=== PATIENT | male | born 1955 | race Caucasian/White ===

== ENCOUNTER 2021-10-17 10:40 | Emergency (ER) | payer MEDICARE, SELFPAY ==
--- NOTE | ~2021-10-17 | XR_ITS ---
EXAMINATION: XR chest 1V portable INDICATION: STEMI TECHNIQUE: Portable AP chest at 1207 hours COMPARISON: None available FINDINGS: Cardiomegaly is noted. There is mild diffuse interstitial pattern. Minimal airspace opaciti es are present in the left lung base. No pleural effusion or pneumothorax. IMPRESSION: 1. Cardiomegaly. 2. Mild diffuse interstitial pattern, likely pulmonary edema. 3. Left basilar airspace opacity, consistent with atelectasis versus pneumonia. Reviewed, dictated and finalized at location A.
[2021-10-17 10:45] VITALS: BP 185/70; PULSE 80; RESP 16; TEMP 36.7; O2SAT 97
--- NOTE | 2021-10-17 10:45 | ECG_ITS ---
Measurements Intervals [place] Rate: 78 P: 16 PA: 120 QRS: -38 QRSD: 148 T: 32 QT: 378 QTc: 431 Interpretive Statements SINUS RHYTHM RIGHT BUNDLE BRANCH BLOCK NO PREVIOUS ECG AVAILABLE FOR COMPARISON Electronically Signed On 10-17-2021 12:06:30 CDT by Wu Landavedre M.D.
[2021-10-17 12:21] LABS: Basophils Percent Auto 0.3 % (0.2-1.2); Eosinophils Absolute Auto 0.2 K/mm3 (0-0.3); Eosinophils Percent Auto 3.2 % (0-4.4); Hematocrit 40.5 % (42.0-52.0); Hemoglobin 13.7 g/dL (14.0-18.0); Immature Granulocyte Absolute 0.04 K/mm3 (0.00-0.031); Immature Granulocyte Percent A 0.7 % (0-0.5); Lymphocytes Absolute Auto 1.53 K/mm3 (0.9-3.2); Lymphocytes Percent Auto 25.8 % (18.3-44.2); Mean Corpuscular HGB Conc 33.8 g/dl (32-36); Mean Corpuscular Hemoglobin 30.1 pg (26-34); Mean Platelet Volume 9.3 fl (7.4-10.4); Monocytes Absolute Auto 0.3 K/mm3 (0.1-0.6); Monocytes Percent Auto 5.1 % (2.6-8.5); Neutrophils Absolute Auto 3.9 K/mm3 (1.3-6.7); Neutrophils Percent Auto 64.9 % (45.5-73.1); Platelet Count Result 199 k/mm3 (150-375); Red Blood Count 4.55 M/mm3 (4.6-6.20); Red Cell Distribution Width 12.6 % (11.5-14.5); White Blood Count 5.9 K/mm3 (4.5-10.0)
[2021-10-17 12:33] LABS: Alanine Aminotransferase 32 U/L (6-50); Albumin Level 4.3 g/dL (3.5-5.1); Alkaline Phosphatase 51 U/L (38-126); Anion Gap 7 mmol/L (8-16); Aspartate Amino Transferase 20 U/L (17-59); Bilirubin,Total 0.1 mg/dL (0.2-1.3); Blood Urea Nitrogen 16 mg/dL (9-20); Calcium 8.5 mg/dL (8.4-10.2); Carbon Dioxide 24 mmol/L (22-30); Chloride 108 mmol/L (98-107); Estimated CRCL calculation 76 ml/min; Estimated Glomerular Filt Rate > 60; Glucose 131 mg/dL (65-110); Sodium 139 mmol/L (137-145)
[2021-10-17 12:44] LABS: Troponin I < 0.012 ng/mL (0.000-0.034)
--- NOTE | 2021-10-17 13:51 | ED.GENADULT ---
HPI - General Adult General Chief complaint: Recheck/Abnormal Lab/Rx Stated complaint: abnormal home ekg Time Seen by Provider: 10/17/21 11:22 Source: patient Mode of arrival: ambulatory Limitations: no limitations History of Present Illness HPI narrative: 66-year-old with a history of hypertension, chronic left shoulder pain here with complaints of abnormal EKG. Patient states that he has a home monitor which showed ST depression, called his primary doctor in [place] and who recommended him to come to the ER. Patient presently has no chest pain no shortness of breath he has chronic left shoulder pain. 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 Onset (ago): day(s) (1) Location: upper extremity (Left shoulder) Radiation: non-radiation Quality: aching Relieving factors: none Exacerbating factors: none Associated symptoms: denies other symptoms Related Data Allergies Allergy/AdvReac Type Severity Reaction Status Date / Time Sulfa (Sulfonamide Allergy Blister Verified 10/17/21 11:00 Antibiotics) Review of Systems Review of Systems: All systems reviewed & are unremarkable except as noted in HPI and below Constitutional: Constitutional: Reports no additional constitutional complaints Eyes: Eyes: Reports no additional eye complaints ENT: Reports system reviewed and no additional complaints, except as documented Cardiovascular: Cardiovascular: Reports no additional cardiovascular complaints Respiratory: Respiratory: Reports no additional respiratory complaints Gastrointestinal: Gastrointestinal: Reports as per HPI Musculoskeletal: Musculoskeletal: Reports as per HPI Neurologic: Reports system reviewed and no additional complaints, except as documented Psychiatric: Psychiatric: Reports no additional psychiatric complaints Exam Narrative: GENERAL: Well-appearing, well-nourished, and in no acute distress. HEAD: Normocephalic, atraumatic. EYES: PERRLA and EOMI.. NECK: Supple. CHEST: Clear to auscultation. No respiratory distress. HEART: Regular rate and rhythm. No murmur heard. Normal peripheral pulses. ABDOMEN: Soft, nontender, nondistended, normal active bowel sounds. EXTREMITIES: Normal range of motion. No edema. SKIN: Warm, dry, no rash. NEURO: No focal deficits. Alert and oriented x3. PSYCH: Normal mood and affect. Course Course Emergency Course: Patient comfortably sitting in the chair in no discomfort wants to go home. I did inform him about his lab work, EKG and chest x-ray findings. Patient states that he is going back to [place] and he will follow-up with his doctor. Vital Signs Vital signs: Vital Signs Temperature 36.7 C 10/17/21 10:45 Pulse Rate 80 10/17/21 10:45 Respiratory Rate 16 10/17/21 10:45 Blood Pressure 185/70 H 10/17/21 10:45 Pulse Oximetry 97 10/17/21 10:45 Oxygen Delivery Room Air 10/17/21 10:45 Temperature 36.7 C 10/17/21 10:45 Pulse Rate 80 10/17/21 10:45 Respiratory Rate 16 10/17/21 10:45 Blood Pressure 185/70 H 10/17/21 10:45 Pulse Oximetry 97 10/17/21 10:45 Oxygen Delivery Room Air 10/17/21 10:45 Medical Decision Making MDM Narrative Medical decision making narrative: ` Atypical chest pain, arthralgia, pneumonia, unstable angina Medical Records Medical records reviewed: Yes I reviewed the external patient's medical records. Vital Signs Vital Signs: Vital Signs Temperature 36.7 C 10/17/21 10:45 Pulse Rate 80 10/17/21 10:45 Respiratory Rate 16 10/17/21 10:45 Blood Pressure 185/70 H 10/17/21 10:45 Pulse Oximetry 97 10/17/21 10:45 Oxygen Delivery Room Air 10/17/21 10:45 Temperature 36.7 C 10/17/21 10:45 Pulse Rate 80 10/17/21 10:45 Respiratory Rate 16 10/17/21 10:45 Blood Pressure 185/70 H 10/17/21 10:45 Pulse Oximetry 97 10/17/21 10:45 Oxygen Delivery Room Air 10/17/21 10:45 Lab Data Result diagrams
[2021-10-17 13:53] VITALS: BP 149/88; PULSE 75; RESP 16; O2SAT 96
== END 2021-10-17 14:09 | disposition home or self-care (01) ==
PROVIDERS: Emergency Provider Family Medicine
DX: R07.89 Other chest pain (principal); I10 Essential (primary) hypertension; I51.7 Cardiomegaly; R91.8 Other nonspecific abnormal finding of lung field; I45.10 Unspecified right bundle-branch block
CPT/HCPCS: 36415; 71045; 80053; 84484; 85025; 93005; 99283